=== PATIENT | female | born 1935 | race Caucasian/White ===

== ENCOUNTER 2021-05-21 02:33 | Emergency (ER) | payer MEDICARE, SELFPAY ==
[2021-05-21] VITALS (7 sets, daily range): BP systolic 122–146; BP diastolic 54–88; PULSE 64–84; RESP 14–18; TEMP 36.6; O2SAT 92–100
[2021-05-21 04:07] LABS: Basophils Absolute Auto 0.1 K/mm3 (0.0-0.1); Basophils Percent Auto 0.7 % (0.2-1.2); Eosinophils Absolute Auto 0.6 K/mm3 (0-0.3); Hematocrit 34.4 % (37.0-47.0); Hemoglobin 10.8 g/dL (12.0-15.0); Immature Granulocyte Absolute 0.03 K/mm3 (0.00-0.031); Immature Granulocyte Percent A 0.4 % (0-0.5); Lymphocytes Absolute Auto 1.51 K/mm3 (0.9-3.2); Lymphocytes Percent Auto 20.9 % (18.3-44.2); Mean Corpuscular HGB Conc 31.4 g/dl (32-36); Mean Corpuscular Hemoglobin 29.5 pg (26-34); Mean Platelet Volume 10.8 fl (7.4-10.4); Monocytes Absolute Auto 0.6 K/mm3 (0.1-0.6); Monocytes Percent Auto 8.1 % (2.6-8.5); Neutrophils Absolute Auto 4.5 K/mm3 (1.3-6.7); Neutrophils Percent Auto 61.9 % (45.5-73.1); Platelet Count Result 186 k/mm3 (150-375); Red Blood Count 3.66 M/mm3 (4.2-5.4); Red Cell Distribution Width 13.6 % (11.5-14.5); White Blood Count 7.2 K/mm3 (4.5-10.0)
[2021-05-21 04:14] LABS: Add Urine Microscopic? YES; Appearance Urine Clear (Clear); Bacteria Urine Trace /hpf; Bilirubin Urine Negative (Negative); Blood Urine 1+ (Negative); Color Urine Yellow (Yellow); Glucose Urine UA Negative (Negative); Ketones Urine Negative (Negative); Leukocyte Esterase Ur 1+ LEU/UL (Negative); Nitrate Urine Negative (Negative); Protein Urine Negative (Negative); RBC Urine 0-2 /hpf (0-2); Specific Grav Ur 1.006 (1.001-1.035); Squamous Epithelial Cell Urine Few /hpf (Few); Urobilinogen Urine Negative mg/dL (<2.0)
[2021-05-21 04:19] LABS: Alanine Aminotransferase 15 U/L (4-35); Albumin Level 3.3 g/dL (3.5-5.1); Alkaline Phosphatase 78 U/L (38-126); Ammonia < 9 umol/L (9-30); Anion Gap 5 mmol/L (8-16); Aspartate Amino Transferase 21 U/L (14-36); Bilirubin,Total 0.4 mg/dL (0.2-1.3); Blood Urea Nitrogen 12 mg/dL (7-17); Calcium 9.1 mg/dL (8.4-10.2); Carbon Dioxide 27 mmol/L (22-30); Chloride 99 mmol/L (98-107); Estimated CRCL calculation 41 ml/min; Estimated Glomerular Filt Rate > 60; Glucose 113 mg/dL (65-110); INR 0.9; Potassium 3.3 mmol/L (3.4-5.0); Prothrombin Time 12.5 Seconds (11.1-14.7); Sodium 131 mmol/L (137-145)
[2021-05-21 04:20] LABS: Partial Thromboplastin Time 34.1 SECONDS (22.3-36.8)
--- NOTE | 2021-05-21 04:29 | PC.NURSE ---
Charge Nurse attempted to contact [facility] to verify that it was in fact the ammonia level that was critical as ours resulted wnl. Awaiting a return phone call and or faxed lab results for this patient.
--- NOTE | 2021-05-21 06:45 | ED.RECABL ---
HPI - Recheck/Abnormal Lab/Rx General Chief Complaint: Recheck/Abnormal Lab/Rx Stated Complaint: abnormal labs Time Seen by Provider: 05/21/21 03:22 Source: patient and RN notes reviewed Mode of arrival: EMS Limitations: no limitations History of Present Illness HPI narrative: This is an 86 year old female who presents from senior living for evaluation of an elevated ammonia. Patient had labs drawn yesterday and it was reported that patient had an ammonia of 338 so she was sent to ER for evaluation. It is unknown if she has history of hyperammonemia or liver disease . Patient denies nausea, vomiting, weakness, abdominal pain or fever. PAtient is oriented to person and place. She knows her date of . Review of Systems Review of Systems: All systems reviewed & are unremarkable except as noted in HPI and below Constitutional: Constitutional: Denies chills, Denies fever(s) and Denies weakness Cardiovascular: Cardiovascular: Denies chest pain Respiratory: Respiratory: Denies cough and Denies dyspnea Gastrointestinal: Gastrointestinal: Denies abdominal pain and Denies nausea Genitourinary: Genitourinary: Denies hematuria and Denies dysuria [facility] Past Medical History Medical History (Updated 05/21/21 @ 06:53 by Shelley Ibrahim MD) CVA (cerebral vascular accident) Hyperlipidemia Hypothyroid Major depressive disorder Surgical History Surgical History (Updated 05/21/21 @ 06:48 by Shelley Ibrahim MD) No pertinent past surgical history Social History Social History (Updated 05/21/21 @ 06:48 by Shelley Ibrahim MD) Smoking status: Unknown if ever smoked Exam Const: General: no acute distress and alert Orientation/consciousness: patient oriented x3 HENMT: Head: normocephalic and atraumatic Face and sinus: face symmetric Mouth: Yes Normal oral and palatal mucosa present, Yes lip normal, Yes oropharynx normal and Yes moist mucous membranes Eyes: Pupils: Equal, round and reactive pupils present EOM: EOMs intact bilaterally Chest: Chest palpation & inspection: normal inspection of the chest Resp: Effort & Inspection: normal respiratory effort and no retractions Auscultation: clear to auscultation bilaterally Cardio: Rate: regular rate Rhythm: regular rhythm Heart sounds: no murmurs GI: GI Palp: Yes Soft to palpation, No Tenderness to palpation present (GI) and No Guarding due to palpation present (GI) Auscultation: normal bowel sounds Skin: General skin exam: normal color Rashes: no rashes Neuro: General: moves all extremities and CN's II-XI intact bilaterally Other: oriented x 2 Psych: Mental Status: mental status grossly normal Affect: normal affect Course Reevaluation(s) Reevaluation #1: patient has no significant abnormalities. She is currently on antibiotics for UTI. Date: 05/21/21 Time: 06:51 Vital Signs Vital signs: Vital Signs Temperature 97.9 F 05/21/21 02:40 Pulse Rate 82 05/21/21 02:40 Respiratory Rate 16 05/21/21 02:40 Blood Pressure 142/58 H 05/21/21 02:40 Pulse Oximetry 100 05/21/21 02:40 Temperature 97.9 F 05/21/21 02:40 Pulse Rate 79 05/21/21 07:25 Respiratory Rate 16 05/21/21 07:25 Blood Pressure 137/62 05/21/21 07:25 Pulse Oximetry 98 05/21/21 07:25 MDM - Recheck/Abnormal Lab/Rx Lab Data Attestation: I reviewed the patient's lab results. Result diagrams: 05/21/21 03:57 05/21/21 03:57 Labs: Lab Results 05/21/21 05/21/21 05/21/21 Range/Units 03:57 03:57 03:57 WBC 7.2 (4.5-10.0) K/mm3 RBC 3.66 L (4.2-5.4) M/mm3 Hgb 10.8 L (12.0-15.0) g/dL Hct 34.4 L (37.0-47.0) % MCV 94.0 (80-100) fl MCH 29.5 (26-34) pg MCHC 31.4 L (32-36) g/dl RDW 13.6 (11.5-14.5) % Plt Count 186 (150-375) k/mm3 MPV 10.8 H (7.4-10.4) fl Immature Gran % (Auto) 0.4 (0-0.5) % Neut % (Auto) 61.9 (45.5-73.1) % Lymph % (Auto) 20.9 (18.3-44.2) % [place] % (
--- NOTE | 2021-05-21 07:15 | PC.NURSE ---
Report to GENNA Bundy no questions. RN to call for ambulance
== END 2021-05-21 09:15 ==
PROVIDERS: Emergency Provider General Practice; PCP Internal Medicine
DX: N39.0 Urinary tract infection, site not specified (principal); E03.9 Hypothyroidism, unspecified; E78.5 Hyperlipidemia, unspecified; Z86.73 Personal history of transient ischemic attack (TIA), and cerebral infarction without residual deficits
CPT/HCPCS: 36415; 80053; 81001; 82140; 85025; 85610; 85730; 87086; 87088; 99283

== ENCOUNTER 2021-08-19 12:43 | Emergency (ER) | payer MEDICARE, SELFPAY ==
--- NOTE | ~2021-08-19 | XR_ITS ---
XR lumbar spine 2-3V 08/19/2021 13:16 Indication: 3 views lumbar spine Procedure: 3 views lumbar spine Comparison: No prior studies for comparison. Findings: There is mild superior endplate compression fracture of L1, possibly acute. Recommend corre lation with CT. There is loss of disc height at all lumbar levels. There is moderate lower lumbar fac et hypertrophy with grade 2 spondylolisthesis at L4-5 secondary to facet hypertrophy. There is levosc oliosis. There is atherosclerosis. Impression: 1: Mild superior endplate compression fracture of L1, possibly acute. Recommend correlation with CT. 2: Moderate lumbar spondylosis with levoscoliosis. Reviewed, dictated and finalized at location A. RS INSPECTOR Impression: 1: Mild superior endplate compression fracture of L1, possibly acute. Recommend correlation with CT. 2: Moderate lumbar spondylosis with levoscoliosis.
[2021-08-19 12:52] VITALS: BP 138/54; PULSE 79; RESP 20; TEMP 36.7; O2SAT 99
--- NOTE | 2021-08-19 13:07 | ED.GENADULT ---
HPI - General Adult General Chief complaint: Back Pain/Injury Stated complaint: Fall Injury/ Back Pain Time Seen by Provider: 08/19/21 12:48 Source: patient Mode of arrival: ambulatory Limitations: no limitations History of Present Illness HPI narrative: Pleasant 86 y/o female. PMHx MDD, CVA, Hypothyroid, HTN, HLD. Presents to [facility] today with acute complaints of low back pain S/P a fall 6 days ago. Pt reports a mechanical fall, tripped over her feet , and landed on her back. No closed head injury, neck pain, LOC. No focal weakness, loss of lower extremity or Bowel.Bladder control. Pt reports an 'aching' type pain in her low back, worse when she bends over . She also endorses mild urinary frequency, without fever, chills, flank pain, abdominal pain, N/V, vaginal discharge, or hematuria. Client tells me that home Tylenol has aided a little with her discomforts. No additional acute c/o illness or injury has been relayed upon PE. Related Data Home Medications Medication Instructions Recorded Confirmed amlodipine 10 mg PO DAILY 08/19/21 08/19/21 furosemide 20 mg PO DAILY 08/19/21 08/19/21 hydralazine 25 mg PO DAILY 08/19/21 08/19/21 hydroxyzine HCl 10 mg PO DAILY 08/19/21 08/19/21 levothyroxine 50 mcg PO DAILY 08/19/21 08/19/21 lisinopril 40 mg PO DAILY 08/19/21 08/19/21 sertraline 25 mg PO DAILY 08/19/21 08/19/21 simvastatin 20 mg PO DAILY 08/19/21 08/19/21 tramadol 50 mg PO Q6-8H PRN 08/19/21 08/19/21 Allergies Allergy/AdvReac Type Severity Reaction Status Date / Time Penicillins Allergy Unknown Verified 08/19/21 13:27 Review of Systems Review of Systems: CONSTITUTIONAL: Denies fever, chills, sweats. EYES: Denies visual changes, redness, discharge. ENT: Denies rhinorrhea, congestion, sore throat, otalgia. CARDIOVASCULAR: Denies chest pain, palpitations, edema. RESPIRATORY: Denies dyspnea, wheezing, cough GASTROINTESTINAL: Denies abdominal pain, nausea, vomiting, diarrhea. GENITOURINARY: Denies dysuria, hematuria, abnormal discharge. Urinary frequency. SKIN: Denies rash or itching. MUSCULOSKELETAL: Back pain. Denies additional joint pain, or myalgia. NEUROLOGIC: Denies numbness, or focal weakness. PSYCHIATRIC: Denies anxiety or depression. All systems reviewed & are unremarkable except as noted in HPI and below PMFSH Past Medical History Medical History CVA (cerebral vascular accident) Hyperlipidemia Hypothyroid Major depressive disorder Surgical History Surgical History No pertinent past surgical history Social History Social History Smoking status: Unknown if ever smoked Exam Narrative: GENERAL: This is a well-nourished, well-developed adult, in no apparent distress. HEAD: normocephalic, atraumatic. EYES: PERRL. Sclera clear/white. EARS: External ears normal NOSE: External nose normal THROAT: Mucous membranes moist, posterior pharynx clear. No exudates. NECK: Neck supple, non-tender without lymphadenopathy, masses or thyromegaly. Full ROM unrestricted. No midline spinal tenderness. CARDIOVASCULAR: Regular rate and rhythm without murmurs, gallops, or rubs. Pulses and sensation intact BLE. RESPIRATORY: Clear to auscultation. Breath sounds equal bilaterally. No wheezes, rales, or rhonchi. GASTROINTESTINAL: Abdomen soft, non-tender, nondistended. Bowel sounds are active. No guarding. SKIN: warm, intact with no suspicious lesions or rash, good texture and turgor. NEURO: Alert, active, and age appropriate. No focal neurologic deficits. No saddle paraesthesia, good sensation BLE as above. BACK/MUSCULOSKELETAL: Good strength. Ambulatory, gait steady w/assistive device. With reproducible LT lower back muscle spasm. No appreciable midline spinal tenderness or deformity. SLR test positive at 45 degree LT. Remaind
== END 2021-08-19 13:50 | disposition home or self-care (01) ==
PROVIDERS: Emergency Provider Nurse Practitioner Adult Health; PCP Internal Medicine
DX: N39.0 Urinary tract infection, site not specified (principal); S32.018A Other fracture of first lumbar vertebra, initial encounter for closed fracture; W01.0XXA Fall on same level from slipping, tripping and stumbling without subsequent striking against object, initial encounter; Z86.73 Personal history of transient ischemic attack (TIA), and cerebral infarction without residual deficits; E78.5 Hyperlipidemia, unspecified; E03.9 Hypothyroidism, unspecified; F32.9 Major depressive disorder, single episode, unspecified
CPT/HCPCS: 72100; 81003; 87086; 87088; 99213; G0463

== ENCOUNTER 2022-05-18 10:54 | Emergency (ER) | payer MEDICARE, MEDICAID, SELFPAY ==
[2022-05-18 11:02] VITALS: BP 122/97; PULSE 75; RESP 16; TEMP 36.5; O2SAT 98
--- NOTE | 2022-05-18 11:03 | ED.FEMALEGU ---
HPI - Female Genitourinary General Chief complaint: Urogenital-Female Stated complaint: Poss UTI Time Seen by Provider: 05/18/22 11:03 Source: patient, family and RN notes reviewed History of Present Illness HPI Narrative: Patient is an 87-year-old female presents the urgent care with a family member with complaints of a possible UTI. Family member states that she tends to have frequent falls when she has a urinary tract infection in the last week she has fallen 3 times and has become slightly confused over normal things . Patient states that for the last 3 days she has had some urinary frequency as well as a sore throat. Family states that yesterday she was confused on what time of day it was and ended up going into the wrong room at [facility]. Denies any recent fevers. States that she has been COVID tested twice every week and all tests have been negative. Denies of any upper respiratory complaints with the exception of sore throat. Denies of hitting her head during the falls. No other acute complaints. No acute distress noted. Patient and family member aware of the plan of care. Some parts of this dictation were generated by voice recognition software and may contain typographical and/or grammatical inaccuracies. Related Data Home Medications Medication Instructions Recorded Confirmed amlodipine 10 mg tablet 10 mg PO DAILY 08/19/21 08/19/21 furosemide 20 mg tablet 20 mg PO DAILY 08/19/21 08/19/21 hydralazine 25 mg tablet 25 mg PO DAILY 08/19/21 08/19/21 hydroxyzine HCl 10 mg tablet 10 mg PO DAILY 08/19/21 08/19/21 levothyroxine 50 mcg tablet 50 mcg PO DAILY 08/19/21 08/19/21 lisinopril 40 mg tablet 40 mg PO DAILY 08/19/21 08/19/21 sertraline 25 mg tablet 25 mg PO DAILY 08/19/21 08/19/21 simvastatin 20 mg tablet 20 mg PO DAILY 08/19/21 08/19/21 tramadol 50 mg tablet 50 mg PO Q6-8H PRN Pain 08/19/21 08/19/21 Allergies Allergy/AdvReac Type Severity Reaction Status Date / Time Penicillins Allergy Unknown Verified 08/19/21 13:27 Review of Systems Review of Systems: CONSTITUTIONAL: Denies fever, chills, or sweats. EYES: Denies visual changes, redness, or discharge. ENT: Denies rhinorrhea, congestion,or otalgia. Reports of sore throat CARDIOVASCULAR: Denies chest pain, palpitations, or edema. RESPIRATORY: Denies cough or dyspnea. GASTROINTESTINAL: Denies abdominal pain, nausea, vomiting, or diarrhea. GENITOURINARY: Reports of urinary frequency SKIN: Denies rash or itching. MUSCULOSKELETAL: Denies back pain, joint pain, or myalgia. NEUROLOGIC: Reports of weakness and confusion PSYCHIATRIC: Denies anxiety or depression. All other systems reviewed are negative, except as documented in HPI. [facility] Past Medical History Medical History CVA (cerebral vascular accident) Hyperlipidemia Hypothyroid Major depressive disorder Surgical History Surgical History No pertinent past surgical history Social History Social History Smoking status: Unknown if ever smoked Comments At the time of my signature, I reviewed and agree with the nursing past medical, surgical, social, and family history. There is no relevant family history pertinent to the patient complaint. Exam Narrative: GENERAL: This is a well-nourished, well-developed patient, in no apparent distress. HEAD: normocephalic, atraumatic. EYES: PERRL. Sclera clear/white. Vision is grossly intact. EARS: External ears normal, auditory canals clear and without drainage, TMs normal without perforation. Hearing grossly intact. NOSE: External nose normal with no obvious nasal discharge, nares without redness, no rhinorrhea. THROAT: Mucous membranes moist, posterior pharynx clear. Mild postnasal drainage NECK: Neck supple, non-tender without lymphadenopathy, masses or thyromegaly. CARDIOVASCULAR: Regular rate and
== END 2022-05-18 12:07 | disposition left against medical advice (07) ==
PROVIDERS: Emergency Provider Nurse Practitioner Family; PCP Internal Medicine
DX: R41.0 Disorientation, unspecified (principal); R35.0 Frequency of micturition; E78.5 Hyperlipidemia, unspecified; E03.9 Hypothyroidism, unspecified; F32.9 Major depressive disorder, single episode, unspecified; Z86.73 Personal history of transient ischemic attack (TIA), and cerebral infarction without residual deficits
CPT/HCPCS: 81003; 99212; G0463

== ENCOUNTER 2024-04-04 13:59 | Emergency (ER) | payer MEDICARE, MEDICAID, SELFPAY ==
[2024-04-04 14:13] VITALS: BP 121/61; PULSE 76; RESP 20; TEMP 37.3; O2SAT 99
--- NOTE | 2024-04-04 15:00 | ED.FEMALEGU ---
HPI - Female Genitourinary General Chief complaint: Urogenital-Female Stated complaint: poss UTI Time Seen by Provider: 04/04/24 15:01 Source: patient and RN notes reviewed Mode of arrival: ambulatory Limitations: no limitations History of Present Illness HPI Narrative: 89 y/o female presented for c/o mid lower abdominal pain for several weeks. Son notices it occurs more when trying to get her out of bed. History of UTIs and reports mild confusion with them. States she has been a little more forgetful. Hx OAB, wears depends. States she fell 3 weeks ago at home, but reports ROM is at baseline to the shoulder and hip. Pt walks with rollator. Pt denies hematuria, nausea, vomiting, abdominal pain, flank pain, constipation, diarrhea, fevers or chills. Related Data Home Medications Medication Instructions Recorded Confirmed amlodipine 10 mg tablet 10 mg PO DAILY 08/19/21 08/19/21 furosemide 20 mg tablet 20 mg PO DAILY 08/19/21 08/19/21 hydralazine 25 mg tablet 25 mg PO DAILY 08/19/21 08/19/21 hydroxyzine HCl 10 mg tablet 10 mg PO DAILY 08/19/21 08/19/21 levothyroxine 50 mcg tablet 50 mcg PO DAILY 08/19/21 08/19/21 lisinopril 40 mg tablet 40 mg PO DAILY 08/19/21 08/19/21 sertraline 25 mg tablet 25 mg PO DAILY 08/19/21 08/19/21 simvastatin 20 mg tablet 20 mg PO DAILY 08/19/21 08/19/21 tramadol 50 mg tablet 50 mg PO Q6-8H PRN Pain 08/19/21 08/19/21 Allergies Allergy/AdvReac Type Severity Reaction Status Date / Time Penicillins Allergy Unknown Verified 08/19/21 13:27 Review of Systems Review of Systems: CONSTITUTIONAL: Denies body aches, fever, chills, or sweats. CARDIOVASCULAR: Denies chest pain, palpitations, or edema. RESPIRATORY: Denies cough or dyspnea. GASTROINTESTINAL: Denies abdominal pain, nausea, vomiting, or diarrhea. GENITOURINARY: Reports dysuria, denies frequency, hematuria, flank pain SKIN: Denies rash, itching, or wounds. MUSCULOSKELETAL: Denies back pain or myalgia. [facility] Past Medical History Medical History CVA (cerebral vascular accident) Hyperlipidemia Hypothyroid Major depressive disorder Surgical History Surgical History No pertinent past surgical history Social History Social History Smoking status: Unknown if ever smoked Comments At time of signature, I have reviewed and agree with nursing past medical, surgical, social and family history unless otherwise noted. Please see nursing chart for further information. There is no relevant family history pertinent to the presenting complaint Exam Narrative: GENERAL: Well-appearing ENT: Mucous membranes pink and moist. NECK: Normal AROM. no vpt. CHEST: No respiratory distress. Clear to auscultation. HEART: Regular rate and rhythm. ABDOMEN: Soft, nontender, nondistended, normal active bowel sounds. No CVA tenderness MUSCULOSKELETAL: No bony tenderness. Baseline ROM to left shoulder. Pt able to sit without difficulty. SKIN: Warm, dry NEURO: No focal deficits. Alert and oriented x3. Gait steady. PSYCH: Normal affect. Course Course Emergency Course: Patient is aware of diagnosis, understands and agrees to treatment plan. Anticipatory guidance given. Patient agrees to follow-up as directed and is aware of reasons to seek care at the emergency department. Portions of this record may have been created with voice recognition software Level of Care: Express Care Visit Vital Signs Vital signs: Vital Signs Temperature 99.1 F 04/04/24 14:13 Pulse Rate 76 04/04/24 14:13 Respiratory Rate 04/04/24 14:13 Blood Pressure 121/61 04/04/24 14:13 Pulse Oximetry 99 04/04/24 14:13 Oxygen Delivery Room Air 04/04/24 14:13 Temperature 99.1 F 04/04/24 14:13 Pulse Rate 76 04/04/24 14:13 Respiratory Rate 04/04/24 14:13 Blood Pressure 121/
== END 2024-04-04 15:19 | disposition home or self-care (01) ==
PROVIDERS: Emergency Provider Nurse Practitioner Family; PCP Internal Medicine
DX: N39.0 Urinary tract infection, site not specified (principal); B96.20 Unspecified Escherichia coli [E. coli] as the cause of diseases classified elsewhere; W19.XXXA Unspecified fall, initial encounter; E78.5 Hyperlipidemia, unspecified; E03.9 Hypothyroidism, unspecified; Z86.73 Personal history of transient ischemic attack (TIA), and cerebral infarction without residual deficits; F32.9 Major depressive disorder, single episode, unspecified
CPT/HCPCS: 81003; 87077; 87086; 87088; 87186; 99213; G0463